=== PATIENT | female | born 1945 | race Caucasian/White ===

== ENCOUNTER 2019-09-28 16:19 | Emergency (ER) | payer MEDICARE, MEDICAID ==
[~2019-09-28] VITALS: Ht 292.1 cm; Wt 65.8 kg
[~2019-09-28 16:19] MED LIST: AMLO5TAB9 PO; ASPI81TA31 PO; ATOR40TA PO; Acetaminophen PO; MAGN400O6 PO; PANT40TA2 PO
[2019-09-28] MEDS ORDERED: IBUP-23 PO (16:47)
[2019-09-28] MEDS ORDERED: MUCINEX (16:47)
[2019-09-28] MEDS ORDERED: LEVO500T2 PO (16:47)
[2019-09-28] MEDS ORDERED: PROM118S4 PO (16:47)
[2019-09-28] MEDS ORDERED: ACET-54 PO (16:47)
[2019-09-28] MEDS ORDERED: NYQUIL (16:47)
[2019-09-28] MEDS ORDERED: DEXAMETHASONE 5 MG/5 ML LIQUID UDC PO ONE (17:15)
[2019-09-28] MEDS ORDERED: ALBUTEROL SULFATE 2.5 MG/ 0.5 ML NEBU NEB ONE (17:15)
[2019-09-28] MEDS ORDERED: DEXAMETHASONE 5 MG/5 ML LIQUID UDC ONE (17:19)
[2019-09-28] MEDS ORDERED: ALBUTEROL SULFATE 2.5 MG/ 0.5 ML NEBU ONE (17:20)
--- NOTE | 2019-09-28 17:57 | NUR ---
Patient discharged to home in stable conditon. Written and verbal after care instructions given. Patient verbalizes understanding of instructions.PT WALKS IN STEADY GAIT. PT WITH SON. NO SIGN OF DIISTRESS. PT SAYS FEELS BETTER.
== END 2019-09-28 18:02 | disposition home or self-care (01) ==
LOC: ER 16:27
DX: J45.901 Unspecified asthma with (acute) exacerbation (principal); R11.10 Vomiting, unspecified; Z88.8 Allergy status to other drugs, medicaments and biological substances; Z79.82 Long term (current) use of aspirin; Z79.899 Other long term (current) drug therapy; Z79.2 Long term (current) use of antibiotics
CPT/HCPCS: 71045; 94640; 99283; J8540; A4663

== ENCOUNTER 2019-10-16 08:16 | Emergency (ER) | payer MEDICARE, BC ==
[~2019-10-16] VITALS: Ht 162.6 cm; Wt 63.5 kg
[2019-10-16] MEDS ORDERED: ONDANSETRON 4 MG/2 ML VIAL ONE (08:46)
[2019-10-16] MEDS ORDERED: LORAZEPAM 2 MG/1 ML VIAL ONE (08:46)
[2019-10-16] MEDS: ONDANSETRON 4 MG/2 ML VIAL IV ONE (08:56)
[2019-10-16] MEDS: LORAZEPAM 2 MG/1 ML VIAL IV ONE (08:56)
[2019-10-16 08:58] LABS: CREATININE 0.7 mg/dL (0.6-1.3); POTASSIUM 3.9 mmol/L (3.5-5.1)
--- NOTE | 2019-10-16 09:02 | NUR ---
Non-productive coughing heard, no shortness of breath seen, denies chest pains, +sorethroat from coughing expressed by patient. Comfort and safety measures maintained.
[2019-10-16 09:03] LABS: BASOPHILS # (AUTO) 0.1 K/uL (0.0-8.0); BASOPHILS % (AUTO) 1.3 % (0.0-2.0); BILIRUBIN,DIRECT 0.1 mg/dL (0.0-0.2); BILIRUBIN,TOTAL 0.4 mg/dL (0.2-1.0); EOSINOPHILS # (AUTO) 0.3 K/uL (0.0-0.7); EOSINOPHILS % (AUTO) 5.3 % (0.0-7.0); HEMATOCRIT 34.6 % (31.2-41.9); HEMOGLOBIN 11.6 g/dL (10.9-14.3); LYMPHOCYTES # (AUTO) 1.9 K/uL (20.0-40.0); LYMPHOCYTES % (AUTO) 32.5 % (20.5-51.5); MEAN CORPUSCULAR HEMOGLOBIN 28.6 uug (24.7-32.8); MEAN CORPUSCULAR HGB CONC 33 g/dL (32.3-35.6); MEAN CORPUSCULAR VOLUME 85.5 fL (75.5-95.3); MONOCYTES # (AUTO) 0.5 K/uL (2.0-10.0); MONOCYTES % (AUTO) 8.4 % (0.0-11.0); NEUTROPHILS # (AUTO) 3.1 K/uL (1.8-8.9); NEUTROPHILS % (AUTO) 52.5 % (38.5-71.5); PLATELET COUNT (AUTO) 222 K/uL (179-408); RED BLOOD CELL COUNT(AUTO) 4.05 MIL/uL (3.63-4.92); TOTAL PROTEIN, SERUM 6.9 g/dL (6.4-8.2)
--- NOTE | 2019-10-16 09:11 | NUR ---
Patient voided, + blood clots in the toilet bowl seen, MD notified.
--- NOTE | 2019-10-16 09:29 | NUR ---
Patient is resting comfortably on gurney with eyes closed, pending results and disposition
[2019-10-16 09:44] LABS: *BILIRUBIN,URIN NEGATIVE (NEGATIVE); *CLARITY,URINE CLEAR (CLEAR); *KETONES,URINE NEGATIVE (NEGATIVE); *UROBILINOGEN,URINE 0.2 E.U./dl (NORMAL); LEUKOCYTE ESTERASE ,URINE NEGATIVE (NEGATIVE); NITRITE, URINE NEGATIVE (NEGATIVE); UGLUCOSE NEGATIVE (NEGATIVE)
[2019-10-16 09:48] LABS: *BLOOD, URINE TRACE (NEGATIVE); *COLOR,URINE PINK (YELLOW)
[2019-10-16 09:57] LABS: BACTERIA,URINE FEW /HPF (NONE SEEN); RBC,URINE 0-3 /HPF (0-3); SQUAMOUS EPITHELIAL CELL,UR FEW /HPF (NONE SEEN); WBC,URINE 0-3 /HPF (0-3)
--- NOTE | 2019-10-16 11:16 | NUR ---
IV removed. Catheter intact and site benign. Pressure and 4x4 gauze applied to site. No bleeding noted. Copies of all the tests results were provided to patient and aduklt son. Patient discharged to home in stable condition. Written and verbal after care instructions given to patient and family. Patient & family verbalized understanding & compliance of instructions.
== END 2019-10-16 11:16 | disposition home or self-care (01) ==
LOC: ER 08:16
DX: J20.9 Acute bronchitis, unspecified (principal); E78.5 Hyperlipidemia, unspecified; J45.909 Unspecified asthma, uncomplicated; Z88.8 Allergy status to other drugs, medicaments and biological substances; Z79.82 Long term (current) use of aspirin; Z79.899 Other long term (current) drug therapy
CPT/HCPCS: 36415; 71045; 80048; 80076; 81000; 81001; 84484; 85025; 87086; 93005; 99284; J2060; J2405; 70030-TC; A4663

== ENCOUNTER 2019-12-15 16:12 | Emergency (ER) | payer MEDICARE, BC ==
[~2019-12-15] VITALS: Ht 162.6 cm; Wt 63.5 kg
--- NOTE | 2019-12-15 16:26 | NUR ---
Dr Alston at the bedside for MSE. Translation by me.
[2019-12-15] MEDS ORDERED: HYDROCODONE/APAP 5-325MG TABLET PO ONE (16:30)
[2019-12-15] MEDS ORDERED: CLINDAMYCIN HCL 150 MG CAPSULE PO ONE (16:30)
[2019-12-15] MEDS ORDERED: AMLODIPINE 5 MG TABLET PO ONE (16:30)
--- NOTE | 2019-12-15 16:31 | NUR ---
Dr made aware of elevated blood pressure, order recieved.
[2019-12-15] MEDS ORDERED: HYDROCODONE/APAP 5-325MG TABLET ONE (16:34)
[2019-12-15] MEDS ORDERED: CLINDAMYCIN HCL 300 MG CAPSULE ONE (16:34)
[2019-12-15] MEDS ORDERED: AMLODIPINE 5 MG TABLET ONE (16:35)
[2019-12-15 16:45] VITALS: BP 180/89
--- NOTE | 2019-12-15 16:46 | NUR ---
Patient discharged to home in stable conditon. Written and verbal after care instructions given. Patient verbalizes understanding of instructions. Pt left ER w/ steady gait accompained by son.
== END 2019-12-15 16:47 | disposition home or self-care (01) ==
LOC: ER 16:14
DX: K08.89 Other specified disorders of teeth and supporting structures (principal); I10 Essential (primary) hypertension; Z86.718 Personal history of other venous thrombosis and embolism; Z79.82 Long term (current) use of aspirin
CPT/HCPCS: A4663

== ENCOUNTER 2020-05-07 12:03 | Emergency (ER) | payer MEDICARE, BC ==
[~2020-05-07] VITALS: Ht 160 cm; Wt 77.1 kg
[~2020-05-07 12:03] MED LIST changes: +ACET-54 PO; +IBUP-23 PO; +LEVO500T2 PO; +MUCINEX; +NYQUIL; +PROM118S5 PO
--- NOTE | 2020-05-07 12:10 | NUR ---
Dr. Conway at bedside for MSE
[2020-05-07] MEDS ORDERED: FAMOTIDINE 20 MG TABLET PO ONE (12:15)
[2020-05-07] MEDS ORDERED: diphenhydrAMINE 50 MG/1 ML VIAL IM ONE (12:15)
[2020-05-07] MEDS ORDERED: predniSONE 20 MG TABLET PO ONE (12:15)
[2020-05-07] MEDS ORDERED: FAMOTIDINE 20 MG TABLET ONE (12:26)
[2020-05-07] MEDS ORDERED: predniSONE 20 MG TABLET ONE (12:26)
[2020-05-07] MEDS ORDERED: diphenhydrAMINE 50 MG/1 ML VIAL ONE (12:26)
[2020-05-07 12:51] LABS: BASOPHILS % (AUTO) 0.1 % (0.0-2.0); EOSINOPHILS # (AUTO) 0.1 K/uL (0.0-0.7); EOSINOPHILS % (AUTO) 0.6 % (0.0-7.0); HEMATOCRIT 32.9 % (31.2-41.9); LYMPHOCYTES # (AUTO) 1.7 K/uL (20.0-40.0); LYMPHOCYTES % (AUTO) 11.5 % (20.5-51.5); MEAN CORPUSCULAR HEMOGLOBIN 28.1 uug (24.7-32.8); MEAN CORPUSCULAR HGB CONC 33 g/dL (32.3-35.6); MEAN CORPUSCULAR VOLUME 84.2 fL (75.5-95.3); MONOCYTES # (AUTO) 0.8 K/uL (2.0-10.0); MONOCYTES % (AUTO) 5.5 % (0.0-11.0); NEUTROPHILS # (AUTO) 11.9 K/uL (1.8-8.9); NEUTROPHILS % (AUTO) 82.3 % (38.5-71.5); PLATELET COUNT (AUTO) 279 K/uL (179-408); RED BLOOD CELL COUNT(AUTO) 3.91 MIL/uL (3.63-4.92); WHITE BLOOD COUNT (AUTO) 14.5 K/uL (3.8-11.8)
[2020-05-07 12:54] LABS: CARBON DIOXIDE 25 mmol/L (21-32); CHLORIDE 98 mmol/L (98-107); CREATININE 0.9 mg/dL (0.6-1.3); GLUCOSE 127 mg/dL (74-106); POTASSIUM 4.3 mmol/L (3.5-5.1); UREA NITROGEN, BLOOD 19 mg/dL (7-18)
[2020-05-07 13:00] LABS: ALANINE AMINOTRANSFERASE 30 U/L (14-59); ALKALINE PHOSPHATASE 100 U/L (50-136); ASPARTATE AMINOTRANSFERASE 24 U/L (15-37); BILIRUBIN,DIRECT < 0.1 mg/dL (0.0-0.2); BILIRUBIN,TOTAL 0.3 mg/dL (0.2-1.0); TOTAL PROTEIN, SERUM 7.3 g/dL (6.4-8.2)
--- NOTE | 2020-05-07 13:08 | NUR ---
Patient discharged to home in stable condition. Written and verbal after care instructions given. Patient verbalizes understanding of instructions. Stressed follow up or return to ER for worsening s/s. Patient ambulated with steady gait. NAD noted
[2020-05-07 13:24] VITALS: BP 138/71
== END 2020-05-07 13:08 | disposition home or self-care (01) ==
LOC: ER 12:03
DX: R21 Rash and other nonspecific skin eruption (principal); D72.829 Elevated white blood cell count, unspecified; Z86.718 Personal history of other venous thrombosis and embolism; Z86.73 Personal history of transient ischemic attack (TIA), and cerebral infarction without residual deficits; Z79.899 Other long term (current) drug therapy; Z79.82 Long term (current) use of aspirin; J45.909 Unspecified asthma, uncomplicated; E78.5 Hyperlipidemia, unspecified; I10 Essential (primary) hypertension; K21.9 Gastro-esophageal reflux disease without esophagitis; E03.9 Hypothyroidism, unspecified
CPT/HCPCS: 36415; 80048; 80076; 85025; 85730; 96372; 99283; J1200; J7512; A4663